=== PATIENT | male | born 1970 | race Caucasian/White ===

== ENCOUNTER 2020-04-24 21:23 | Inpatient (IN) ==
[2020-04-25] MEDS ORDERED: Naloxone 0.4 MG/ML INJ IVP PRN (00:25)
[2020-04-25] MEDS ORDERED: Ondansetron 4 MG/2 ML VIAL IVP PRN (00:25)
[2020-04-25] MEDS ORDERED: *HR* LORazepam 2 MG/ML VIAL IVP PRN (01:04)
[2020-04-25] MEDS: *HR* OxyCODONE Immed Rel 5 MG TABLET PO PRN ×4 (01:29→20:59)
[2020-04-25] MEDS: 0.9 % Sodium Chloride 1,000 ML IVC SCH ×2 (01:30→11:25)
[2020-04-25 01:41] LABS: Basophils # 0.1 K/mcL (0.0-0.2); Basophils % 0.5 %; Eosinophils % 0.2 %; Hematocrit 42.4 % (37.5-50.1); Hemoglobin 14.7 g/dL (12.9-16.9); Immature Granulocytes % 0.3 % (0-4); Lymphocytes # 1.2 K/mcL (0.6-4.6); Lymphocytes % 10.1 %; Mean Corpuscular HGB Conc 34.7 g/dL (31.6-35.5); Mean Corpuscular Hemoglobin 33.1 pg (28.0-33.3); Mean Corpuscular Volume 95.5 fL (83.0-100.0); Monocytes # 1.1 K/mcL (0.0-1.3); Monocytes % 9.2 %; Neutrophils # 9.8 K/mcL (1.6-8.9); Platelet Count 155 K/mcL (140-400); Red Blood Count 4.44 M/mcL (4.19-5.50); Red Cell Distribution Width 12.4 % (11.5-14.5); Segmented Neutrophils % 79.7 %; White Blood Count 12.3 K/mcL (4.3-11.1)
[2020-04-25 02:03] LABS: Alanine Aminotransferase 128 Units/L (7-52); Albumin 4.1 g/dL (3.5-5.7); Albumin/Globulin Ratio 1.6 (1.1-2.2); Alkaline Phosphatase 126 Units/L (34-104); Aspartate Amino Transferase 103 Units/L (13-39); BUN/Creatinine Ratio 8 (6-26); Bilirubin,Total 0.6 mg/dL (0.3-1.0); Blood Urea Nitrogen 8 mg/dL (6-20); Calcium 8.9 mg/dL (8.6-10.3); Carbon Dioxide 18 mEq/L (23-29); Chloride 99 mEq/L (98-107); Globulin 2.6 g/dL (2.4-3.5); Glucose 82 mg/dL (70-105); Magnesium 1.9 mg/dL (1.6-2.6); Osmolality,Calculated 269 (280-300); Phosphorous 3.9 mg/dL (2.7-4.5); Potassium 4.3 mEq/L (3.5-5.1); Sodium 131 mEq/L (136-145); Total Protein 6.7 g/dL (6.4-8.9); eGFR For African Americans > 60 (> 60); eGFR For Non-African Americans > 60 (> 60)
[2020-04-25 02:11] LABS: Bilirubin,Urine Negative (Negative); Blood,Urine Negative (Negative); Clarity,Urine Clear (Clear); Color,Urine Light-Yellow (Yellow); Glucose,Urine (UA) Normal (Normal); Ketones,Urine 10 mg/dL (Negative); Leukocyte Esterase,Urine Negative (Negative); Nitrite,Urine Negative (Negative); PH,Urine 5.5 pH Units (5.0-8.0); Protein,Urine Negative (Neg-Trace); Specific Gravity,Urine 1.011 (1.010-1.025); Urobilinogen,Urine Normal (Normal)
[2020-04-25 02:26] LABS: Folate 6.4 ng/mL (3.0-16.0)
[2020-04-25 02:35] LABS: INR 0.9; Prothrombin Time 9.9 Seconds (9.4-12.1)
[2020-04-25] MEDS: *HR* Heparin 5,000 UNIT/ML VIAL SQ SCH ×3 (05:17→20:59)
[2020-04-25] MEDS: Folic Acid 1 MG TABLET PO SCH (08:51)
[2020-04-25] MEDS: Thiamine (B-1) 100 MG TABLET PO SCH (08:51)
[2020-04-25] MEDS: Nicotine 14 MG PATCH.TD24 TD SCH (08:52)
[2020-04-25] MEDS: Loratadine 10 MG TABLET PO SCH (11:18)
[2020-04-25] MEDS: amLODIPine 5 MG TABLET PO SCH (11:21)
[2020-04-25] MEDS: Aspirin Enteric Coated 81 MG Tablet PO SCH (11:21)
[2020-04-25] MEDS: Isosorbide MONOnitrate (24 HR) 60 MG TAB.ER.24H PO SCH (11:21)
[2020-04-25] MEDS: Metoprolol XL (24 HR) Succ 50 MG TAB.ER.24H PO SCH (11:21)
[2020-04-25] MEDS ORDERED: Melatonin 3 MG TABLET PO SCH (21:00)
[2020-04-26] MEDS: *HR* Heparin 5,000 UNIT/ML VIAL SQ SCH ×2 (05:11→13:18)
[2020-04-26 05:13] LABS: Hematocrit 44.1 % (37.5-50.1); Hemoglobin 15.1 g/dL (12.9-16.9); Mean Corpuscular HGB Conc 34.2 g/dL (31.6-35.5); Mean Corpuscular Volume 96.3 fL (83.0-100.0); Mean Platelet Volume 9.9 fL (9.4-12.4); Red Blood Count 4.58 M/mcL (4.19-5.50); Red Cell Distribution Width 12.6 % (11.5-14.5); White Blood Count 6.8 K/mcL (4.3-11.1)
[2020-04-26 05:29] LABS: BUN/Creatinine Ratio 7 (6-26); Blood Urea Nitrogen 7 mg/dL (6-20); Calcium 8.9 mg/dL (8.6-10.3); Carbon Dioxide 26 mEq/L (23-29); Chloride 102 mEq/L (98-107); Glucose 99 mg/dL (70-105); Osmolality,Calculated 280 (280-300); Sodium 136 mEq/L (136-145); eGFR For African Americans > 60 (> 60); eGFR For Non-African Americans > 60 (> 60)
[2020-04-26] MEDS: Nicotine 14 MG PATCH.TD24 TD SCH (08:27)
[2020-04-26] MEDS: Thiamine (B-1) 100 MG TABLET PO SCH (08:32)
[2020-04-26] MEDS: amLODIPine 5 MG TABLET PO SCH (08:33)
[2020-04-26] MEDS: Aspirin Enteric Coated 81 MG Tablet PO SCH (08:33)
[2020-04-26] MEDS: Isosorbide MONOnitrate (24 HR) 60 MG TAB.ER.24H PO SCH (08:33)
[2020-04-26] MEDS: Metoprolol XL (24 HR) Succ 50 MG TAB.ER.24H PO SCH (08:34)
[2020-04-26] MEDS: Folic Acid 1 MG TABLET PO SCH (08:34)
[2020-04-26] MEDS: Loratadine 10 MG TABLET PO SCH (08:34)
[2020-04-26] MEDS ORDERED: Total Joint Mixture (50 ml) INTRAART ONE (12:00)
[2020-04-26] MEDS ORDERED: Clindamycin 900 MG/50 ML 900 MG/50 ML IV.SOLN IVPB ONE (18:12)
[2020-04-26] MEDS ORDERED: Ethanol\\Acetic Acid\\Na Ace\\Ben 1,000 ML IRRIG.SOLN IR ONE (18:26)
[2020-04-26] MEDS ORDERED: Vancomycin 1,000 MG VIAL ONE (18:26)
[2020-04-26] MEDS ORDERED: *HR* Propofol 200 MG/20 ML VIAL IVP ONE (18:30)
[2020-04-26] MEDS ORDERED: Ondansetron 4 MG/2 ML VIAL ONE (18:30)
[2020-04-26] MEDS ORDERED: *HR* FentaNYL (PF) 100 MCG/2 ML VIAL ONE (18:30)
[2020-04-26] MEDS ORDERED: Lidocaine -MPF 2% 2 ML VIAL ONE (18:30)
[2020-04-26] MEDS ORDERED: *HR* Succinylcholine 200 MG/10 ML VIAL IVP ONE (18:30)
[2020-04-26] MEDS ORDERED: Lidocaine -MPF 4% 5 ML AMPUL ONE (18:30)
[2020-04-26] MEDS ORDERED: Dexamethasone 4 MG/ML VIAL ONE (18:30)
[2020-04-26] MEDS ORDERED: *HR* Rocuronium Bromide 50 MG/5 ML VIAL ONE (18:31)
[2020-04-26] MEDS ORDERED: *HR* Midazolam HCl 2 MG/2 ML VIAL ONE (18:53)
[2020-04-26] MEDS ORDERED: Tranexamic Acid 1,000 MG/10 ML VIAL ONE (18:57)
[2020-04-26] MEDS ORDERED: *HR* HYDROmorphone (PF) 1 MG/ML SYRINGE IVP PRN (19:00)
[2020-04-26] MEDS ORDERED: *HR* Promethazine 25 MG/ML VIAL IVP PRN ×2 (19:00→20:45)
[2020-04-26] MEDS ORDERED: Ondansetron 4 MG/2 ML VIAL IVP PRN ×3 (19:00→20:45)
[2020-04-26] MEDS ORDERED: *HR* Metoprolol 5 MG/5 ML VIAL IVP ONE (19:08)
[2020-04-26] MEDS ORDERED: Ketorolac 30 MG/ML VIAL ONE (19:16)
[2020-04-26] MEDS ORDERED: Neostigmine Methylsulfate 3 MG/3 ML SYRINGE ONE (19:21)
[2020-04-26] MEDS ORDERED: *HR* PHENYLEPHRINE 1,000 MCG/10 ML SYRINGE IVP ONE (19:31)
[2020-04-26] MEDS: *HR* Labetalol 20 MG/4 ML SYRINGE IVP PRN ×2 (20:08→20:15)
[2020-04-26 20:42] LABS: Hematocrit 40.6 % (37.5-50.1)
[2020-04-26 20:43] LABS: Hemoglobin 13.3 g/dL (12.9-16.9)
[2020-04-26] MEDS ORDERED: Ringers Solution, Lactated 1,000 ML IVC SCH (20:45)
[2020-04-26] MEDS ORDERED: Naloxone 0.4 MG/ML INJ IVP PRN ×2 (20:45)
[2020-04-26] MEDS ORDERED: MOM Conc 10 ML UD.LIQ PO PRN (20:45)
[2020-04-26] MEDS ORDERED: D5% in Water 1,000 ML IVC PRN (20:45)
[2020-04-26] MEDS ORDERED: *HR* Dextrose 50 % in Water (Vial) 50 ML VIAL IVP PRN (20:45)
[2020-04-26] MEDS ORDERED: Sennosides 8.6 MG TABLET PO PRN (20:45)
[2020-04-26] MEDS ORDERED: Dextrose Gel 15 GM/37.5 ML TUBE PO PRN ×2 (20:45)
[2020-04-26] MEDS ORDERED: *HR* OxyCODONE Immed Rel 5 MG TABLET PO PRN (20:45)
[2020-04-26] MEDS ORDERED: *HR* LORazepam 2 MG/ML VIAL IVP PRN (20:45)
[2020-04-26] MEDS ORDERED: Melatonin 3 MG TABLET PO SCH (21:00)
[2020-04-26] MEDS ORDERED: Insulin LISPRO 300 UNITS/3 ML VIAL SQ SCH (21:00)
[2020-04-26] MEDS: Clindamycin 900 MG/50 ML 900 MG/50 ML IV.SOLN IVPB SCH (23:53)
[2020-04-27] MEDS: Clindamycin 900 MG/50 ML 900 MG/50 ML IV.SOLN IVPB SCH (07:52)
[2020-04-27 07:57] LABS: Basophils % 0.1 %; Hematocrit 38.2 % (37.5-50.1); Hemoglobin 12.8 g/dL (12.9-16.9); Immature Granulocytes % 0.4 % (0-4); Lymphocytes # 0.7 K/mcL (0.6-4.6); Lymphocytes % 7.4 %; Mean Corpuscular HGB Conc 33.5 g/dL (31.6-35.5); Mean Corpuscular Hemoglobin 32.6 pg (28.0-33.3); Mean Corpuscular Volume 97.2 fL (83.0-100.0); Mean Platelet Volume 10.1 fL (9.4-12.4); Monocytes # 1.1 K/mcL (0.0-1.3); Monocytes % 11.3 %; Neutrophils # 7.7 K/mcL (1.6-8.9); Platelet Count 132 K/mcL (140-400); Red Blood Count 3.93 M/mcL (4.19-5.50); Red Cell Distribution Width 12.3 % (11.5-14.5); Segmented Neutrophils % 80.8 %; White Blood Count 9.6 K/mcL (4.3-11.1)
[2020-04-27] MEDS ORDERED: Ascorbic Acid 500 MG TABLET PO SCH (08:00)
[2020-04-27 08:17] LABS: BUN/Creatinine Ratio 12 (6-26); Blood Urea Nitrogen 12 mg/dL (6-20); Calcium 8.6 mg/dL (8.6-10.3); Carbon Dioxide 22 mEq/L (23-29); Chloride 101 mEq/L (98-107); Glucose 124 mg/dL (70-105); Osmolality,Calculated 277 (280-300); Potassium 4.1 mEq/L (3.5-5.1); Sodium 133 mEq/L (136-145); eGFR For African Americans > 60 (> 60); eGFR For Non-African Americans > 60 (> 60)
[2020-04-27] MEDS: Insulin LISPRO 300 UNITS/3 ML VIAL SQ SCH ×2 (08:47→12:37)
[2020-04-27] MEDS ORDERED: Thiamine (B-1) 100 MG TABLET PO SCH (09:00)
[2020-04-27] MEDS ORDERED: Isosorbide MONOnitrate (24 HR) 60 MG TAB.ER.24H PO SCH (09:00)
[2020-04-27] MEDS ORDERED: Loratadine 10 MG TABLET PO SCH (09:00)
[2020-04-27] MEDS ORDERED: Folic Acid 1 MG TABLET PO SCH (09:00)
[2020-04-27] MEDS ORDERED: amLODIPine 5 MG TABLET PO SCH (09:00)
[2020-04-27] MEDS ORDERED: Multivit/Ca/Min/Fe/FA 1 TAB TABLET PO SCH (09:00)
[2020-04-27] MEDS ORDERED: Metoprolol XL (24 HR) Succ 50 MG TAB.ER.24H PO SCH (09:00)
[2020-04-27] MEDS ORDERED: Nicotine 14 MG PATCH.TD24 TD SCH (09:00)
[2020-04-27 11:08] VITALS: BP 126/74
[2020-04-27] MEDS ORDERED: Aspirin Enteric Coated 81 MG Tablet PO SCH (18:40)
== END 2020-04-27 15:57 | disposition home health service (06) | DRG 301 ==
LOC: 3NENU → SUATTDRO 04-25 00:09
PROVIDERS: ADMIT Internal Medicine; ATTEND Family Medicine